=== PATIENT | male | born 1950 | race Caucasian/White ===

== ENCOUNTER 2016-05-16 16:02 | Inpatient (IN) | payer OTHER ==
[~2016-05-16] VITALS: Ht 170.2 cm; Wt 74.8 kg
[~2016-05-16 16:02] MED LIST: AMLODIPINE10 M1 PO; ASPIR 8181 MG PO; HYDRALAZINE HCL25 MG PO; MYCOPHENOLIC A180 MG PO; PHOSPHA 250 NEU1 TAB PO; PREDNICOT5 MG PO; PROGRAF1 MG PO
[2016-05-16 17:20] LABS: BASOPHIL % 0.4 % (0-2); PLATELET COUNT 614 x10^3mcL (130-400); RED CELL DISTRIBUTION WIDTH 17.8 % (11.5-14.5)
[2016-05-16 17:35] LABS: ALBUMIN 2.1 g/dL (3.4-5.0); BILIRUBIN TOTAL 0.36 mg/dL (0.20-1.00); CALCIUM 9.1 mg/dL (8.5-10.1); CARBON DIOXIDE 31.1 mmol/L (21-32); MAGNESIUM 2.2 mg/dL (1.8-2.4); TOTAL PROTEIN, SERUM 8.6 g/dL (6.4-8.2)
[2016-05-16 17:37] LABS: CREATININE SERUM 5.9 mg/dL (0.7-1.3); POTASSIUM SERUM 5.6 mmol/L (3.5-5.1)
[2016-05-16 19:43] LABS: CHOLESTEROL/HDL RATIO 4.1
[2016-05-16 19:52] LABS: T3 TOTAL 0.64 ng/mL
[2016-05-16 19:53] LABS: FREE T4 1.15 ng/dL (0.76-1.46); FREE THYROXINE INDEX 1.8 ug/dL (1.4-4.5); T4(THYROXINE) 5.6 ug/dL (4.7-13.3)
[2016-05-16 20:09] VITALS: BP 195/95
[2016-05-16 20:45] VITALS: Ht 170.2 cm; Wt 74.8 kg
[2016-05-16 23:05] VITALS: BP 162/75
[2016-05-17 02:00] LABS: CALCIUM 10.1 mg/dL (8.5-10.1); CARBON DIOXIDE 30.6 mmol/L (21-32); POTASSIUM SERUM 4.6 mmol/L (3.5-5.1)
[2016-05-17 02:13] LABS: CREATININE SERUM 6.4 mg/dL (0.7-1.3)
[2016-05-17 05:11] VITALS: BP 182/82
[2016-05-17 06:19] LABS: CALCIUM 9.7 mg/dL (8.5-10.1); CARBON DIOXIDE 30.2 mmol/L (21-32); MAGNESIUM 2.5 mg/dL (1.8-2.4); PHOSPHOROUS 5.5 mg/dL (2.5-4.9); POTASSIUM SERUM 5.2 mmol/L (3.5-5.1)
[2016-05-17 06:33] LABS: CREATININE SERUM 6.6 mg/dL (0.7-1.3)
[2016-05-17 07:24] LABS: BASOPHIL % 0.3 % (0-2)
[2016-05-17 07:25] LABS: PLATELET COUNT 621 x10^3mcL (130-400); RED CELL DISTRIBUTION WIDTH 17.5 % (11.5-14.5)
[2016-05-17 08:58] VITALS: BP 166/100
[2016-05-17 13:24] VITALS: BP 154/75
[2016-05-17 16:20] LABS: microscopic required? YES; urine erythrocyte 3+ (NEGATIVE)
[2016-05-17 16:35] LABS: AMPHETAMINE QUAL UR NONE DETECTED (NEG <=1000)
[2016-05-17 17:31] VITALS: BP 158/76
[2016-05-17 20:26] LABS: CARBON DIOXIDE 31.7 mmol/L (21-32); POTASSIUM SERUM 4.5 mmol/L (3.5-5.1)
[2016-05-17 20:32] LABS: CREATININE SERUM 7.5 mg/dL (0.7-1.3)
[2016-05-17 20:51] VITALS: BP 159/81
[2016-05-18 05:48] VITALS: BP 144/66
[2016-05-18 06:04] LABS: CALCIUM 8.6 mg/dL (8.5-10.1); CARBON DIOXIDE 28.1 mmol/L (21-32); MAGNESIUM 2.4 mg/dL (1.8-2.4); PHOSPHOROUS 7.4 mg/dL (2.5-4.9); POTASSIUM SERUM 4.8 mmol/L (3.5-5.1)
[2016-05-18 07:03] LABS: BASOPHIL % 0.3 % (0-2)
[2016-05-18 07:04] LABS: PLATELET COUNT 531 x10^3mcL (130-400); RED CELL DISTRIBUTION WIDTH 17.2 % (11.5-14.5)
[2016-05-18 09:51] VITALS: BP 139/65
[2016-05-18 17:29] VITALS: BP 151/72
[2016-05-18 19:30] VITALS: BP 133/64
[2016-05-18 21:21] VITALS: BP 113/71
[2016-05-19 05:55] VITALS: BP 136/63
[2016-05-19 07:11] LABS: CALCIUM 8.6 mg/dL (8.5-10.1); CARBON DIOXIDE 30.1 mmol/L (21-32); PHOSPHOROUS 5.9 mg/dL (2.5-4.9); POTASSIUM SERUM 4.3 mmol/L (3.5-5.1)
[2016-05-19 07:12] LABS: BASOPHIL % 0.5 % (0-2)
[2016-05-19 07:15] LABS: PLATELET COUNT 489 x10^3mcL (130-400); RED CELL DISTRIBUTION WIDTH 17.4 % (11.5-14.5)
[2016-05-19 07:34] LABS: CREATININE SERUM 5.8 mg/dL (0.7-1.3)
[2016-05-19 09:47] VITALS: BP 142/63
[2016-05-19 15:06] VITALS: BP 142/63
[2016-05-19] MEDS ORDERED: NIC7 TD (15:19)
[2016-05-19] MEDS ORDERED: APR10 PO (15:20)
[2016-05-19] MEDS ORDERED: APR20I IV (15:20)
[2016-05-19] MEDS ORDERED: COR3 PO (15:21)
[2016-05-19] MEDS ORDERED: RES15 PO (15:22)
[2016-05-19] MEDS ORDERED: CATAPRES-TTS-20.2 MG TD (15:22)
[2016-05-19] MEDS ORDERED: APAP/HYDROCODON1 T13 PO (15:22)
[2016-05-19] MEDS ORDERED: BG MC (15:23)
[2016-05-19] MEDS ORDERED: L20I IV (15:23)
[2016-05-19] MEDS ORDERED: PHOS PO (15:23)
[2016-05-19] MEDS ORDERED: DEXPF IV (15:23)
[2016-05-19] MEDS ORDERED: ZOFI IV (15:24)
[2016-05-19] MEDS ORDERED: NEP PO (15:24)
[2016-05-19] MEDS ORDERED: HUMULIN R100 U/1 M1 SC (15:24)
[2016-05-19] MEDS ORDERED: COL100 PO (15:24)
== END 2016-05-19 16:45 | disposition short-term general hospital (02) | DRG 682 ==
LOC: ED 16:02 → MU 18:44 → DU 18:44 → MU 05-17 18:04
PROVIDERS: Emergency Medicine; Family Medicine; ADMIT Family Medicine
DX: I12.0 Hypertensive chronic kidney disease with stage 5 chronic kidney disease or end stage renal disease (principal); N18.6 End stage renal disease; E43 Unspecified severe protein-calorie malnutrition; N17.0 Acute kidney failure with tubular necrosis; E87.1 Hypo-osmolality and hyponatremia; Z94.0 Kidney transplant status; T86.11 Kidney transplant rejection; I42.2 Other hypertrophic cardiomyopathy; I16.0 Hypertensive urgency; E87.5 Hyperkalemia; E83.41 Hypermagnesemia; E83.39 Other disorders of phosphorus metabolism; I35.0 Nonrheumatic aortic (valve) stenosis; D63.1 Anemia in chronic kidney disease; F07.81 Postconcussional syndrome; G47.00 Insomnia, unspecified; Z72.0 Tobacco use; Z91.81 History of falling; Z99.2 Dependence on renal dialysis; Z68.22 Body mass index [BMI] 22.0-22.9, adult; E87.8 Other disorders of electrolyte and fluid balance, not elsewhere classified
CPT/HCPCS: 80307; 82962; 83880; 84439; 94150; 97110-GP; 97116-GP; 97530-GP; J0885-EC; J1200; J1815; J1940; J3490; J7030; J7507; Q0092; Q0163

== ENCOUNTER 2016-06-08 06:59 | Emergency (ER) | payer OTHER ==
[~2016-06-08 06:59] MED LIST changes: +APAP/HYDROCODON1 T13 PO; +APR10 PO; +APR20I IV; +BG MC; +CATAPRES-TTS-20.2 MG TD; +COL100 PO; +COR3 PO; +DEXPF IV; +HUMULIN R100 U/1 M1 SC; +L20I IV; +NEP PO; +NIC7 TD; +PHOS PO; +RES15 PO; +ZOFI IV
[2016-06-08 07:24] VITALS: BP 83/66
[2016-06-08 07:45] LABS: BASOPHIL % 0.5 % (0-2)
[2016-06-08 07:46] LABS: PLATELET COUNT 421 x10^3mcL (130-400); RED CELL DISTRIBUTION WIDTH 19.5 % (11.5-14.5)
[2016-06-08 08:55] LABS: BILIRUBIN TOTAL 0.3 mg/dL (0.20-1.00); CALCIUM 10.4 mg/dL (8.5-10.1); CARBON DIOXIDE 12.6 mmol/L (21-32)
[2016-06-08 08:58] LABS: POTASSIUM SERUM 6.7 mmol/L (3.5-5.1); TOTAL PROTEIN, SERUM 8.3 g/dL (6.4-8.2)
[2016-06-08 08:59] LABS: CREATININE SERUM 7.6 mg/dL (0.7-1.3)
== END 2016-06-08 07:06 | disposition expired ==
LOC: ED 06:59
PROVIDERS: Emergency Medicine
DX: I46.9 Cardiac arrest, cause unspecified (principal); E87.5 Hyperkalemia; J81.1 Chronic pulmonary edema; I48.91 Unspecified atrial fibrillation; I50.9 Heart failure, unspecified; Z99.2 Dependence on renal dialysis
CPT/HCPCS: 36600; 83880; J0171; J3490